=== PATIENT | male | born 1965 | race Caucasian/White ===

== ENCOUNTER → 2017-01-08 | Outpatient (CLI) | payer BC ==
--- NOTE | 2017-01-08 15:17 | Diagnostic Imaging Report ---
EXAMINATION: Two views of the right hip. INDICATION: Right hip pain x 1 year. FINDINGS: There is moderate joint space narrowing and subchondral sclerosis seen, compatible with osteoarthritis. There is lateral acetabular and femoral head osteophyte formation seen. No fracture or dislocation. No radiopaque foreign body. IMPRESSION: Moderate right hip osteoarthritis. Dictated by: Dictated on workstation # [id number]
--- NOTE | 2017-01-08 15:23 | Diagnostic Imaging Report ---
EXAMINATION: AP view of the pelvis. INDICATION: Right hip pain. FINDINGS: There are bilateral hip osteoarthritic changes with subchondral sclerosis and joint space narrowing with the changes worse on the right side compared to the left. The SI joints demonstrate no significant degenerative changes. The symphysis pubis demonstrates mild degenerative sclerosis. IMPRESSION: Bilateral hip osteoarthritis, mild on the left and moderate on the right. Dictated by: Dictated on workstation # [id number]
== END ==
LOC: RAD 09:48
DX: M25.551 Pain in right hip (principal)
CPT/HCPCS: 72170; 73502